=== PATIENT | male | born 1985 ===

== ENCOUNTER 2017-05-15 04:08 | Emergency (ER) | payer MEDICAID ==
[2017-05-15] MEDS ORDERED: LIDOCAINE HCL 2% (VISCOUS) 20 ML SOL MT ONE (04:20)
[2017-05-15] MEDS ORDERED: ALUMINUM/MAGNESIUM 30 ML SUS PO ONE (04:20)
[2017-05-15 04:24] VITALS: RESP 18; TEMP 97.8
[2017-05-15] MEDS ORDERED: LIDOCAINE HCL 2% (VISCOUS) 20 ML SOL ONE (04:24)
[2017-05-15] MEDS ORDERED: ALUMINUM/MAGNESIUM 30 ML SUS ONE (04:24)
[2017-05-15] MEDS ORDERED: ACETAMINOPHEN 325 MG PO ONE (04:35)
[2017-05-15] MEDS ORDERED: ACETAMINOPHEN 325 MG ONE (04:42)
[2017-05-15 04:56] LABS: BASOPHILS % (AUTO) 2 % (0-3); EOSINOPHILS % (AUTO) 5 % (0-9); HEMATOCRIT 42 % (39-53); MEAN CORPUSCULAR HGB CONC 34.4 gm/dl (32.0-36.0); MEAN CORPUSCULAR VOLUME 85 fL (80-100)
[2017-05-15 05:14] LABS: ALBUMIN 3.4 gm/dl (3.4-5.0); ALT 32 IU/L (14-63); CALCIUM 8.7 mg/dl (8.5-10.1); GLOM FILT RATE 91 mL/min (>60); POTASSIUM 3.9 mMol/L (3.5-5.1)
[2017-05-15 05:18] LABS: SODIUM 142 mMol/L (136-145)
[2017-05-15 05:34] VITALS: BP 117/54; PULSE 66; O2SAT 94
== END 2017-05-15 05:37 | disposition home or self-care (01) | DRG 440 ==
LOC: ED 04:08
DX: K85.90 Acute pancreatitis without necrosis or infection, unspecified (principal)
CPT/HCPCS: 36415; 80053; 84484; 85025; 99283

== ENCOUNTER 2017-06-07 15:57 | Emergency (ER) | payer MEDICAID ==
[2017-06-07] MEDS ORDERED: ONDANSETRON HCL 4 MG/2 ML SOL IV ONE (16:04)
[2017-06-07] MEDS ORDERED: HYDROMORPHONE HCL 2 MG/ML SOL IV ONE (16:04)
[2017-06-07] MEDS ORDERED: HYDROMORPHONE 1 MG/ML SYRINGE ONE (16:10)
[2017-06-07] MEDS ORDERED: ONDANSETRON HCL 4 MG/2 ML SOL ONE (16:10)
[2017-06-07 16:19] LABS: HEMATOCRIT 45 % (39-53); MEAN CORPUSCULAR HGB CONC 33.7 gm/dl (32.0-36.0); MEAN CORPUSCULAR VOLUME 84 fL (80-100)
[2017-06-07 16:26] LABS: ALBUMIN 3.5 gm/dl (3.4-5.0); CALCIUM 8.3 mg/dl (8.5-10.1)
[2017-06-07 16:46] LABS: BASOPHILS % (MANUAL) 0 % (0-3); EOSINOPHILS % (MANUAL) 2 % (0-9); LYMPHOCYTES % (MANUAL) 2 % (10-50); NORMAL RBCS PRESENT
[2017-06-07 17:26] VITALS: BP 112/57; PULSE 80; RESP 18; TEMP 99; O2SAT 100
== END 2017-06-07 17:50 | disposition home or self-care (01) | DRG 391 ==
LOC: ED 15:57
DX: K52.9 Noninfective gastroenteritis and colitis, unspecified (principal); K85.90 Acute pancreatitis without necrosis or infection, unspecified
CPT/HCPCS: 74177; 80053; 82150; 85007; 85027; 99285; J2405; Q9967; J1170